=== PATIENT | male | born 1985 | race African-American/Black ===

== ENCOUNTER 2019-12-30 11:13 | Emergency (ER) | payer OTHER ==
[~2019-12-30] VITALS: Ht 177.8 cm; Wt 81.6 kg
[2019-12-30 11:13] VITALS: TEMP 98.4
[2019-12-30 11:55] LABS: PLATELET COUNT 263 K/uL (142-355)
[2019-12-30 12:02] LABS: POTASSIUM 3.9 mmol/L (3.6-5.2); SODIUM 139 mmol/L (136-145)
[2019-12-30 12:15] LABS: PARTIAL THROMBOPLASTIN TIME 26.2 SECONDS (24.5-33.6)
[2019-12-30 12:46] VITALS: BP 129/78
== END 2019-12-30 12:56 | disposition home or self-care (01) ==
LOC: ED 11:13
PROVIDERS: Hospitalist
DX: R07.89 Other chest pain (principal)
CPT/HCPCS: 80053; 82550; 83880; 84484; 85027; 85610; 85730; 93005; 96374; 99284; J1885